=== PATIENT | male | born 1940 | race Caucasian/White ===

== ENCOUNTER → 2021-06-18 09:53 | Outpatient (CLI) | payer SELFPAY ==
--- NOTE | 2021-06-18 09:59 | ART_ITS ---
Reason For Study: SWELLING Procedure A bilateral lower extremity continuous wave Doppler with analog waveform analysis,segmental pressures,and ankle brachial indexes without exercise. Left Segmental Pressures Left brachial= 141mmHg. Left posterior tibial artery = 148mmHg. Left dorsalis pedis artery = 162mmHg. Left digit = 154 mmHg. The left posterior tibial artery waveforms are biphasic. The left dorsalis pedis waveforms are triphasic. Right Segmental Pressures Right brachial= 122mmHg. Right posterior tibial artery = 144mmHg. Right dorsalis pedis artery = 160mmHg. Right digit = 158 mmHg. The right dorsalis pedis waveforms are triphasic. The right posterior tibial artery waveforms are biphasic. Indices The right ankle brachial index by the dorsalis pedis is 1.13. The right ankle brachial index by the posterior tibial artery is 1.02. The right digital-brachial index is 1.12. The left ankle brachial index by the dorsalis pedis is 1.15. The left ankle brachial index by the posterior tibial artery is 1.05. The left digital-brachial index is 1.09. VL/Lower Ext Art Exam w/o Exercis Interpretation Summary Biphasic and triphasic Doppler waveforms are noted at ankle level bilaterally. Pulse-volume recordings appear satisfactory at all levels bilaterally, including low thigh, calf, ankle, and digital levels. Resting ankle-brachial indices are normal bilaterally. Digital- brachial indices are normal bilaterally. There is no evidence of significant arterial occlusive disease in the lower ext remities bilaterally. Ordering Physician: Chavo Hutton Referring Physician: CHAVO HUTTON MD Performed By: TERE ARORA RDCS
--- NOTE | 2021-06-18 09:59 | VDLE_ITS ---
Reason For Study: SWELLING RIGHT LEFT CFV is compressible, spontaneous, phasic, CFV is compressible, spontaneous, phasic, competent and demonstrates normal competent, and demonstrates normal augmentation. augmentation. FV is compressible, spontaneous, phasic, FV is compressible, spontaneous, phasic, competent and demonstrates normal competent and demonstrates normal augmentation. augmentation. POP V is compressible, spontaneous, phasic, POP V is compressible, spontaneous, phasic, competent and demonstrates normal competent and demonstrates normal augmentation. augmentation. T/P Trunk is compressible. T/P Trunk is compressible. PTV is compressible. PTV is compressible. RT PerV is compressible. LT PerV is compressible. SFJ is competent and measures .71 X .72 cm. SFJ is competent and measures .95 X .92 cm. GSV at knee measures .41 X .40 cm. GSV above knee is INCOMPETENT for greater GSV is competent throughout. than 0.5 seconds. ASV mid calf is INCOMPETENT for greater than GSV at knee measures .12 X .21 cm. 0.5 seconds and measures .60 X .54 cm. GSV below knee is competent. SSV at junction is INCOMPETENT for greater SSV at junction is competent and measures .25 than 0.5 seconds and measures .36 X .39 cm. X .37 cm. Procedure This is a venous duplex using B-mode, color flow and spectral Doppler. Exam performed in department. VL/Venous Duplex US - Stiven Extrem Interpretation Summary Deep veins of the lower extremities are bilaterally patent and compressible seg mentally. There is no evidence of deep vein thrombosis on either side. Valvular competence appears in tact within the proximal deep venous systems bilaterally. The great saphenous veins appear bila terally patent and compressible segmentally. Sapheno-femoral junctions are bilaterally competent . The right great saphenous vein appears segmentally competent. The left great saphenous vein lobo ears incompetent above the knee. The left great saphenous vein appears competent below the knee. The right small saphenous vein is patent and incompetent. The left small saphenous vein is manjarrez nt and competent. The accessory saphenous vein in the right mid-calf is incompetent. Ordering Physician: Chavo Ferro Performed By: Sirisha Mackey RDCS, RVT
== END ==
PROVIDERS: Visit Provider Surgery
DX: M79.89 Other specified soft tissue disorders (principal); I73.9 Peripheral vascular disease, unspecified; I87.2 Venous insufficiency (chronic) (peripheral)
CPT/HCPCS: 93923; 93970